=== PATIENT | male | born 1985 | race Two or more races ===

== ENCOUNTER 2024-08-15 19:08 | Emergency (ER) | payer BC, OTHER ==
[~2024-08-15] VITALS: Ht 177.8 cm; Wt 116.0 kg
[2024-08-15 20:49] LABS: Urine Bacteria None Seen /hpf (None Seen)
[2024-08-15] MEDS ORDERED: ACET-1304 PO (20:50)
[2024-08-15] MEDS ORDERED: NAP500T PO (20:50)
[2024-08-15 21:03] LABS: Urine Blood Negative /uL (Negative); Urine Clarity Clear (Clear); Urine Color Colorless (Yellow); Urine Protein, UAD Negative (Negative); Urine Specific Gravity 1.007 (1.001-1.035); Urine Urobilinogen Normal (Negative); Urine WBC <1 /hpf (0 - 3)
[2024-08-15] MEDS ORDERED: LEVO500T91 PO (21:40)
[2024-08-15 22:56] VITALS: BP 146/96; PULSE 78; RESP 18; TEMP 97.7; O2SAT 97
[2024-08-15] MEDS: HYDROcodone-ACET 5/325MG TAB PO ONE (22:56)
== END 2024-08-15 23:46 | disposition home or self-care (01) ==
LOC: ER 19:08
DX: N45.1 Epididymitis (principal); G89.18 Other acute postprocedural pain
CPT/HCPCS: 76870; 81001